=== PATIENT | female | born 1975 | race Caucasian/White ===

== ENCOUNTER 2023-12-02 12:49 | Emergency (ER) | payer SELFPAY ==
[~2023-12-02] VITALS: Ht 160 cm; Wt 63.0 kg
[2023-12-02 13:13] VITALS: O2SAT 100
[2023-12-02] MEDS ORDERED: ACETAMINOPHEN 325MG TABLET PO ONE (13:30)
[2023-12-02] MEDS ORDERED: MECLIZINE 25MG TABLET PO ONE (13:30)
[2023-12-02] MEDS ORDERED: ACETAMINOPHEN 325MG TABLET PO NR (16:30)
[2023-12-02] MEDS ORDERED: MECLIZINE 12.5MG TABLET PO NR (16:30)
[2023-12-02] MEDS ORDERED: MECL-299 MT (17:01)
[2023-12-02 17:57] VITALS: BP 97/64; PULSE 58; RESP 20; TEMP 97.7
== END 2023-12-02 17:59 | disposition home or self-care (01) ==
LOC: ER 12:49
DX: R42 Dizziness and giddiness (principal)
CPT/HCPCS: 99284; 70450; 81025; J8597